=== PATIENT | female | born 1945 | race Two or more races ===

== ENCOUNTER → 2018-02-03 | Outpatient (CLI) | payer OTHER | END | disposition home or self-care (01) | LOC: MAMO-SONO 02-01 09:15 → SONOGRAMA 08:58 → MAMO-SONO 09:15 | DX: E04.2 Nontoxic multinodular goiter (principal) ==

== ENCOUNTER 2018-06-12 10:09 | Outpatient (CLI) | payer OTHER | END 2018-06-12 10:13 | disposition home or self-care (01) | LOC: SONOGRAMA 10:09 | DX: E04.2 Nontoxic multinodular goiter (principal) ==

== ENCOUNTER → 2019-01-03 | Outpatient (CLI) | payer OTHER | END | disposition home or self-care (01) | LOC: NUCLEAR 12:46 | DX: K31.84 Gastroparesis (principal) | CPT/HCPCS: 78215; A9541 ==

== ENCOUNTER → 2019-01-11 | Outpatient (CLI) | payer OTHER | END | disposition home or self-care (01) | LOC: NUCLEAR 01-10 08:43 | DX: K76.89 Other specified diseases of liver (principal) | CPT/HCPCS: 78264; A9541 ==

== ENCOUNTER 2022-07-19 13:35 | Emergency (ER) | payer OTHER ==
[~2022-07-19] VITALS: Ht 149.9 cm; Wt 65.8 kg
== END 2022-07-19 21:23 | disposition home or self-care (01) ==
LOC: ER 13:35
DX: S01.111A Laceration without foreign body of right eyelid and periocular area, initial encounter (principal); S19.9XXA Unspecified injury of neck, initial encounter; X58.XXXA Exposure to other specified factors, initial encounter; Y93.9 Activity, unspecified; Y92.9 Unspecified place or not applicable; Y99.9 Unspecified external cause status